=== PATIENT | male | born 1980 | race Caucasian/White ===

== ENCOUNTER 2021-11-10 00:53 | Emergency (ER) | payer OTHER ==
[~2021-11-10] VITALS: Ht 185.4 cm; Wt 72.6 kg
== END 2021-11-10 03:14 | disposition home or self-care (01) ==
LOC: ER 00:53
DX: G43.909 Migraine, unspecified, not intractable, without status migrainosus (principal); F17.210 Nicotine dependence, cigarettes, uncomplicated
CPT/HCPCS: 96374; 96375; 99283-25; J1885; J2550